=== PATIENT | male | born 1940 | race Caucasian/White ===

== ENCOUNTER 2017-05-02 10:00 | Day surgery (SDC) | payer MEDICARE ==
[~2017-05-02] VITALS: Ht 180.3 cm; Wt 99.1 kg
--- NOTE | ~2017-05-02 | OP ---
PATIENT NAME: EDUAR MARINO MEDICAL RECORD: [id number] :38 LOCATION:D.OPS ADMISSION DATE: SURGEON: WILBUR DE PAZ DO DATE OF OPERATION: 05/02/2017 PROCEDURE: Colonoscopy with polypectomy and biopsy. INDICATIONS FOR PROCEDURE: Positive stool guaiac. SCOPE: Olympus video pediatric colonoscope. MEDICATIONS: Propofol 800 mg IV per anesthesia. WITHDRAWAL TIME: 46 minutes. COMPLICATIONS: None. ESTIMATED BLOOD LOSS: Minimal. FINDINGS: Informed consent was given. The patient was made comfortable with the above medication. After reaching an adequate level of sedation by slow IV push, the patient was placed on his left side. The endoscope was then advanced under direct visualization through the rectum to the cecum with visualization of the appendiceal orifice and ileocecal valve. The scope was slowly withdrawn and mucosa was carefully examined. Prep quality was good. On this examination, there was evidence of very mild pandiverticulosis as well as grade I internal hemorrhoids. Outside of these findings, there were multiple polyps. The first was located in the appendiceal orifice. It was a flat polyp, which measured approximately 1 cm in size. This polyp was not removed, but was biopsied. In the cecum, there were 4 separate polyps which were benign-appearing and sessile. They ranged in size from 3 to 5 mm in diameter. They were all removed using hot forceps in 1 piece and completely retrieved. In the ascending colon, there were two separate polyps which were removed. The first was a larger sessile lesion measuring approximately 1 cm in size. It was removed using EMR technique with a saline injection for a pillow prior to a hot snare removal in 1 piece and completely retrieved. The second polyp was also removed with the snare in 1 piece and completely retrieved. It measured approximately 5 to 6 mm in diameter. In the descending colon, there were 3 separate benign-appearing sessile polyps, which ranged in size from 3 to 5 mm in diameter. They were removed using hot forceps in 1 piece completely retrieved. In the sigmoid colon was another larger polyp measuring approximately 1 cm in size, which was removed using a hot snare in 1 piece and completely retrieved. Retroflexion was performed in the rectum and again grade I internal hemorrhoids without bleeding were visualized. The endoscope was then withdrawn from the patient. The patient tolerated the procedure well and there were no complications. IMPRESSION: 1. Mild pandiverticulosis. 2. Grade I internal hemorrhoids. 3. Multiple polyps as described above in different locations. All were removed except for one, which was located on the appendiceal orifice. PLAN AND RECOMMENDATIONS: 1. Discharge home when recovery parameters are met. 2. Follow up biopsy specimen results. OPERATIVE REPORT [id number] EDUAR MARINO 3. High fiber diet. 4. Continue current medications. 5. Referral to Dr. Arriola for APC therapy of the appendiceal orifice polyp. 6. Further treatment will be dependent on Dr. Arriola's evaluation and therapy to the appendiceal orifice polyp. TRANSINT:[id number] Voice Confirmation ID: [id number] DOCUMENT ID: [id number] WILBUR DE PAZ DO at 0739 CC: [id number] DICTATION DATE: 05/02/17 1237 PEDIATRIC ANESTHESIOLOGIST: 05/02/17 1252 [facility] 05/02/17 [facility] [address] [place] [address]
[2017-05-02] MEDS ORDERED: FLOMAX0.4 MG PO (10:30)
[2017-05-02] MEDS ORDERED: XALATAN 0.0052.5 ML EACH EYE (10:31)
[2017-05-02] MEDS ORDERED: NEURONTIN 300300 MG PO (10:31)
[2017-05-02] MEDS ORDERED: PAXIL20 MG PO (10:32)
[2017-05-02] MEDS ORDERED: AMOXICILLIN500 M1 PO (10:32)
[2017-05-02] MEDS ORDERED: NORVASC5 MG (10:33)
[2017-05-02] MEDS ORDERED: ELIQUIS5 MG (10:33)
[2017-05-02] MEDS ORDERED: OMEPRAZOLE DR 20 MG (10:34)
[2017-05-02] MEDS ORDERED: COZAAR50 MG PO (10:34)
[2017-05-02] MEDS ORDERED: LANOXIN250 MCG PO (10:35)
[2017-05-02] MEDS ORDERED: PROSCAR5 MG (10:35)
[2017-05-02] MEDS ORDERED: CORDARONE200 MG PO (10:35)
[2017-05-02 10:39] VITALS: BP 140/85; Ht 180.3 cm; Wt 99.1 kg
[2017-05-02 11:08] LABS: HEMATOCRIT 40.4 % (42.0-54.0); HEMOGLOBIN 13.7 g/dL (13.5-17.5); MCH 30.6 pg (26.0-34.0); MCHC 33.9 g/dL (31.0-37.0); MCV 90.2 fL (80.0-100.0); MEAN PLATELET VOLUME 9.4 fL (7.4-10.4); RBC 4.48 10x6/uL (4.20-6.10); RDW 13.2 % (11.5-14.5); WBC 5.3 10x3/uL (4.8-10.8)
[2017-05-02 12:01] LABS: ANION GAP 12.9 mmol/L (8-16); CALCIUM 8.4 mg/dL (8.5-10.1); CREATININE - SERUM 1.1 mg/dL (0.6-1.3); POTASSIUM - SERUM 3.9 mmol/L (3.5-5.1)
== END 2017-05-02 13:45 | disposition home or self-care (01) ==
LOC: D.OPS 10:00
PROVIDERS: Internal Medicine Gastroenterology
DX: R19.5 Other fecal abnormalities (principal); D12.2 Benign neoplasm of ascending colon; D12.0 Benign neoplasm of cecum; D12.4 Benign neoplasm of descending colon; D12.5 Benign neoplasm of sigmoid colon; K64.0 First degree hemorrhoids; J44.9 Chronic obstructive pulmonary disease, unspecified; G47.30 Sleep apnea, unspecified; K21.9 Gastro-esophageal reflux disease without esophagitis; I10 Essential (primary) hypertension; Z95.0 Presence of cardiac pacemaker; Z01.812 Encounter for preprocedural laboratory examination

== ENCOUNTER 2017-07-13 09:00 | Day surgery (SDC) | payer MEDICARE ==
[~2017-07-13] VITALS: Ht 177.8 cm; Wt 98.9 kg
--- NOTE | ~2017-07-13 | OP ---
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 PROCEDURES: 1. Total colonoscopy to cecum. 2. Polypectomy utilizing the argon plasma house carpenter, which is a radiofrequency type of ablation of a benign colonic process. SURGEON: Clarence Ramos MD SENIOR REPORT DEVELOPER: None. BLOOD LOSS: Minimal. ANESTHESIA: General. COMPLICATIONS: None. The risks, possible complications and alternatives to procedure were explained to the patient. He elects to proceed. The discussion specifically included, but was not limited to, bleeding requiring emergency reoperation, infection, intestinal injury, perforation. The location of the polyp makes it a high risk polyp and for this reason, the patient was referred to me. The patient's prep was inadequate. OPERATIVE COURSE: The patient was conveyed to the operating room electively on 07/13/2017. General anesthesia was induced by the anesthesia staff. The patient was placed in the Kirby position. A digital rectal examination was performed. A colonoscope was inserted through the anus. It was easily advanced to the cecum. I irrigated and aspirated extensively in the cecum. The polyp was best noted utilizing narrow band imaging. Cold endoscopic biopsies were performed of the polyp. I then destroyed the polypoid base utilizing the argon plasma house carpenter with the right colon setting in the forced mode. I then slowly withdrew the endoscope. A combination of normal imaging and narrow band imaging were utilized. I dragged the folds. The pullback was greater than an 18-minute pullback. A retroflexed view was obtained in the rectum. I then unretroflexed the scope and removed it under direct vision. I will see the patient in my office in 2-3 weeks. It is very likely I will recommend another colonoscopy with the argon plasma house carpenter in 1 year. TRANSINT:[id number] Voice Confirmation ID: [id number] DOCUMENT ID: [id number] OPERATIVE REPORT [id number] EDUAR MARINO CLARENCE RAMOS MD at 1157 CC: TOM TALLEY MD, OSBALDO LI and WILBUR DE PAZ [id number] DICTATION DATE: 07/13/17 1658 CHILD DEVELOPMENT SPECIALIST: 07/13/17 1831 [facility] 07/13/17 [place] [id number] [place] [id number]
[~2017-07-13 09:00] MED LIST: AMOXICILLIN500 M1 PO; CORDARONE200 MG PO; COZAAR50 MG PO; ELIQUIS5 MG; FLOMAX0.4 MG PO; LANOXIN250 MCG PO; NEURONTIN 300300 MG PO; NORVASC5 MG; OMEPRAZOLE DR 20 MG; PAXIL20 MG PO; PROSCAR5 MG; XALATAN 0.0052.5 ML EACH EYE
[2017-07-13 10:42] LABS: BASOPHILS 0.2 % (0-2); EOSINOPHILS 0.3 % (0-7); HEMATOCRIT 39.4 % (42.0-54.0); HEMOGLOBIN 13.3 g/dL (13.5-17.5); IMMATURE GRANULOCYTES 0.3 % (0-5); LYMPHOCYTES 12.7 % (15-50); MCH 31.4 pg (26.0-34.0); MCHC 33.8 g/dL (31.0-37.0); MCV 92.9 fL (80.0-100.0); MEAN PLATELET VOLUME 9.1 fL (7.4-10.4); MONOCYTES 10.9 % (2-11); NEUTROPHILS 75.6 % (40-80); RBC 4.24 10x6/uL (4.20-6.10); RDW 13.1 % (11.5-14.5); WBC 6.2 10x3/uL (4.8-10.8)
[2017-07-13] MEDS ORDERED: LASIX40 MG (10:45)
[2017-07-13] MEDS ORDERED: KLOR-CON 1010 MEQ PO (10:46)
[2017-07-13 10:47] LABS: PLATELET COUNT 173 10x3/uL (130-400)
[2017-07-13 10:52] VITALS: Ht 177.8 cm; Wt 98.9 kg
[2017-07-13 10:52] LABS: CALC OSMOLALITY 276 mosm/kg (275-300); CARBON DIOXIDE 23.3 mmol/L (21.0-32.0); CHLORIDE - SERUM 102 mmol/L (98-107); GLUCOSE 118 mg/dL (74-106); POTASSIUM - SERUM 3.8 mmol/L (3.5-5.1); SODIUM 138 mmol/L (136-145); UREA NITROGEN 12 mg/dL (7-18); eGFR NON AFRICAN AMERICAN 76 mL/min (90-120)
== END 2017-07-13 18:32 | disposition home or self-care (01) ==
LOC: D.OPS 09:00 → D.PAN 11:30 → D.OPS 13:15 → D.PAN 13:15 → D.OPS 18:32
PROVIDERS: Anesthesiology
DX: D12.1 Benign neoplasm of appendix (principal); Z01.812 Encounter for preprocedural laboratory examination